=== PATIENT | female | born 1965 | race Caucasian/White ===

== ENCOUNTER 2016-10-30 16:46 | Emergency (ER) | payer OTHER ==
[2016-10-30 17:15] VITALS: BP 131/89
--- OUTSIDE RECORDS SUMMARY | 2016-10-30 18:08 | XMS REPORT | Continuity of Care Document ---
:1965 Author Organization [email or web address] [place] [address] Care Team Providers Name Role Phone VaishalikylieMiriam Primary Care Provider [phone] Source Comments This disclosure is being made pursuant to the [employer] program and maynot contain all information available regarding this patient.[email or web address] Active Allergies and Adverse Reactions No Known Allergies Current Medications Be aware that medications may not be up to date as of this document. Alwaysverify current medications with the patient. Prescription Sig. Disp. Refills Start Date End Date Status meloxicam (MOBIC) 15 Take 1 tablet 30 tablet 5 10/12/2015 Active MG tablet by mouth daily. gabapentin Take 2 180 capsule 5 10/12/2015 Active (NEURONTIN) 400 MG capsules by capsule mouth 3 (three) times daily. ALPRAZolam (XANAX) Take by mouth 1 tablet 0 09/04/2016 Active 0.5 MG tablet 2 hours before MRI cyclobenzaprine TAKE ONE 30 tablet 0 09/25/2016 Active (FLEXERIL) 10 MG TABLET BY tablet MOUTH THREE TIMES A DAY NEEDED FOR MUSCLE SPASMS acetaminophen Take 500 mg Active (TYLENOL) 500 MG by mouth tablet every 6 (six) hours as needed for Pain. traMADol (ULTRAM) 50 Take 1 tablet 8 tablet 0 10/12/2016 Active MG tablet (50 mg total) by mouth every 8 (eight) hours as needed for Pain. triamterene-hydrochl TAKE ONE 30 tablet 2 10/16/2016 Active orothiazide TABLET BY (MAXZIDE-25) 37.5-25 MOUTH EVERY MG per tablet DAY diclofenac sodium Take 1 tablet 60 tablet 2 10/30/2016 Active (VOLTAREN) 75 MG EC by mouth 2 tablet (two) times daily. triamterene-hydrochl TAKE ONE 30 tablet 2 07/12/2016 Discontinued orothiazide TABLET BY 7 (MAXZIDE-25) 37.5-25 MOUTH EVERY MG per tablet DAY traMADol (ULTRAM) 50 Take 1 tablet 8 tablet 0 09/21/2016 Discontinued MG tablet (50 mg total) 7 by mouth every 8 (eight) hours as needed for Pain. diclofenac sodium Take 1 tablet 60 tablet 0 09/28/2016 Discontinued (VOLTAREN) 75 MG EC by mouth 2 7 tablet (two) times daily. Active Problems Problem Noted Date MRSA (methicillin resistant Staphylococcus aureus) infection 05/20/2016 Bilateral lower extremity edema 10/12/2015 Left foot pain 06/16/2015 Fibromyalgia 01/19/2015 Knee pain 05/21/2014 Low back pain radiating to right lower extremity 11/21/2013 Ganglion of joint 09/26/2013 Overview: Overview: MIRIAM KUMAR MD Edema 04/10/2013 Overview: Overview: MIRIAM KUMAR MD Osteoarthrosis, hand 04/10/2013 Overview: Overview: MIRIAM KUMAR MD Uncomplicated varicose veins 04/10/2013 Overview: Overview: MIRIAM KUMAR MD Tear of lateral cartilage or meniscus of knee, current 01/15/2013 Overview: Overview: left knee confirmed by MRI of 01/03/13. Chronicity:Acute ALLI BRIZUELA MD Tear of medial cartilage or meniscus of knee, current 01/15/2013 Overview: Overview: left knee confirmed by MRI of 01/03/13. Chronicity:Acute ALLI BRIZUELA MD Chondromalacia of patella 01/15/2013 Overview: Overview: left knee seen on MRI of 01/03/13 as well. Chronicity:Chronic ALLI BRIZUELA MD Osteoarthritis of knee 01/15/2013 Overview: Overview: LC and PFJ left side with valgus (15 degrees). Chronicity:Chronic ALLI BRIZUELA MD Pain in joint, pelvic region and thigh 12/23/2012 Overview: Overview: left for last 4-5 months. Chronicity:Chronic MIRIAM KUMAR MD Enthesopathy of hip region 12/23/2012 Overview: Overview: Left hip. Chronicity:Chronic ALLI BRIZUELA MD Obesity 12/23/2012 Overview: Overview: Chronicity:Chronic ALLI BRIZUELA MD Resolved Problems Problem Noted Date Resolved Date s/p left knee arthroscopy DOS: 06/02/14 06/17/2014 03/05/2015 Iron deficiency anemia 06/10/2008 06/16/2014 Overview: Overview: MIRIAM KUMAR MD Most Recent Encounters Date Type Specialty Providers Description 10/30/2016 Refill Pain Management Leah Guerrero, RN 10/15/2016 Refill Family Miriam Chapin, Bilateral lower MD extremity edema 10/12/2016 Telephone Family Medicine Jayne Herbert, Medication Management PUBLIC EVENTS FACILITIES RENTAL MANAGER 10/03/2016 Telephone Pain Management Cami Montes, Other RN 09/28/2016 Hospital Encounter Pain Management 1, [facility] Pain Prov Hip bursitis , right (Primary Dx) 09/27/2016 Anesthesia Event Pain Management Celine Buckley, PATHOLOGICAL TECHNICIAN 09/25/2016 Refill Family Miriam Chapin MD 09/21/2016 Refill Family Miriam Chapin MD 09/21/2016 Refill Family Jayne Wright, PUBLIC EVENTS FACILITIES RENTAL MANAGER 09/12/2016 Telephone Family Medicine Araceli Andres Referral PUBLIC EVENTS FACILITIES RENTAL MANAGER 09/11/2016 Hospital Encounter Radiology Miriam Kumar, Low back pain MD radiating to right lower extremity 09/11/2016 Telephone Family Jayne Wright, Medication Refill PUBLIC EVENTS FACILITIES RENTAL MANAGER 09/09/2016 Refill Family Miriam Chapin MD 09/07/2016 Scanned Document Miriam Nava MD 09/04/2016 Office Visit Family Miriam Chapin, Low back pain MD radiating to right lower extremity (Primary Dx); Claustrophobia 08/30/2016 Telephone Family Jayne Wright, Medication Management PUBLIC EVENTS FACILITIES RENTAL MANAGER 08/22/2016 Telephone Pain Management Leah Guerrero, Appointment RN 08/10/2016 Refill Family Jayne Wright, Chronic back pain, PUBLIC EVENTS FACILITIES RENTAL MANAGER unspecified back location, unspecified back pain laterality (Primary Dx) 08/08/2016 Refill Family Miriam Chapin MD Immunizations Name Dates Previously Given Next Due INFLUENZA, INACTIVATED, QUADRIVALENT, 3 05/19/2016,05/24/2015,07/21/2014 YEARS AND older, single dose syringe/vial Tdap 02/05/2014 Social History Tobacco Use Types Packs/Day Years Used Date Never Smoker Smokeless Tobacco: Never Used Tobacco Cessation:Counseling Given: Yes Comments: Alcohol Use Drinks/Week oz/Week Comments Yes Alcoholic Drinks/day: Yes very seldom: Noted on [id number]:24:00 Last Filed Vital Signs Vital Sign Reading Time Taken Blood Pressure 148/85 09/28/2016 2:50 PM TRAVEL ASSISTANT Pulse 86 09/28/2016 2:50 PM TRAVEL ASSISTANT Temperature 37.2 C (99 F) 09/28/2016 2:50 PM TRAVEL ASSISTANT Respiratory Rate 20 09/28/2016 2:50 PM TRAVEL ASSISTANT Height 1.67 m (5' 5.75") 09/04/2016 9:50 AM TRAVEL ASSISTANT Weight 87.998 kg (194 lb) 09/04/2016 9:50 AM TRAVEL ASSISTANT Body Mass Index 31.55 09/04/2016 9:50 AM TRAVEL ASSISTANT Oxygen Saturation 96% 09/28/2016 2:50 PM TRAVEL ASSISTANT Plan of Care Health Maintenance Due Date Last Done Comments Hepatitis C Screening 1982 Colonoscopy 2014 Well Adult Visit 06/16/2015 06/16/2014 Mammogram 03/08/2017 03/08/2015, 03/25/2012, 03/25/2012 Pap Smear 06/16/2017 06/16/2014, 01/28/2013 Tetanus/Pertussis (2 - Td) 02/06/2024 02/05/2014 Influenza Immunization Completed 05/19/2016, 05/24/2015, 07/21/2014 Procedures from Last 3 Months Procedure Name Priority Date/Time Associated Diagnosis Comments HC MAJOR Routine 10/04/2016 8:49 AM Hip bursitis, right Results for this JOINT/BURSA TRAVEL ASSISTANT procedure are in INJECTION the results section. Results from Last 3 Months Major Joint/Bursa Injection (10/04/2016 8:49 AM) Narrative Celine Buckley, PATHOLOGICAL TECHNICIAN 10/04/20168:49 AM Nova Can is a 51 y.o. female patient. Patient Active Problem List Diagnosis Tear of lateral cartilage or meniscus of knee, current Tear of medial cartilage or meniscus of knee, current Edema Pain in joint, pelvic region and thigh Chondromalacia of patella Enthesopathy of hip region Ganglion of joint Osteoarthrosis, hand Obesity Osteoarthritis of knee Uncomplicated varicose veins Low back pain radiating to right lower extremity Knee pain Fibromyalgia Left foot pain Bilateral lower extremity edema MRSA (methicillin resistant Staphylococcus aureus) infection Past Medical History Diagnosis Date Personal history of other musculoskeletal disorders(V13.59) Other musculoskeletal hx: Noted 20124:24PM; Fibromyalgia Personal history of other musculoskeletal disorders(V13.59) Other musculoskeletal hx: Noted :24PM; Fibromyalgia Fibromyalgia Arthritis Hypertension There were no vitals taken for this visit. Major Joint/Bursa Injection Date/Time: 09/28/2016 2:38 PM Performed by: CELINE BUCKLEY Authorized by: CELINE BUCKLEY Greater Trochanteric Bursa Injection Pre-procedure Pain Level:10/10 Post-procedure Pain Level:5/10 Procedure performed: Right trochanteric bursa injection The patient was positively identified in the exam room.The medical record was reviewed, and a full discussion of the risks, benefits, complications, alternatives, and anticipated outcome from this procedure was discussed with the patient.Any questions that the patient had regarding this discussion were answered, the patient stated that they understood the risk and that there were no further questions, and written consent was obtained. The patient was assisted to the Left lateral position on the procedure table.Following a time out, the trochanteric trigger points were elicited with palpation and patient report and marked for identification. Skin was then sprayed with [employer] & Stretch using the spray and stretch technique. Next, the skin was prepped with a chloroprep solution for 60 seconds and allowed to dry. A 25 gauge sacha spinal needle was inserted into the trigger point identified by the paitent.The greater trochanter was contacted and the needle was subsequently withdrawn 1 mm.A 5 ml solution containing 40 mg triamcinolone and 4 ml 0.25% marcaine was injected without difficulty.From the same insertion site, the spinal needle was then walked off the trochanter at a similar depth in a fan-like array anterior, posterior and inferior to the initial needle trajectory and the remaining volume of the 4 ml solution was injected in 1 ml increments.The needle was removed.Any sign of superficial bleeding was tamponaded.The soft tissue over the ipsilateral hip was gently massaged with moisturizing lotion and wiped clean. Bandaids were applied to the puncture sites.The patient tolerated the procedure well.Vital signs remained stable in recovery and through discharge. Total number of puncture sites: 1 Total volume of injectate administered: 5 ml Post Procedure Note: The vital signs were stable, patient was awake and responding appropriately to commands, and conversing with staff.The patient denies any new weakness or paresthesias to all four extremities. Following the procedure, all of the patient's questions were answered to their satisfaction.Both written and verbal discharge instructions were given, and a signed copy was given to the patient.The patient is to be discharged home in the care of their compressed air pile driver operator.We will follow up with this patient in 1 or 2 weeks to reassess their progress, and evaluate the need for further or alternative interventions. Thank you again for allowing us to participate in the care of your patient.Please feel free to contact me at any time should any questions arise regarding this procedure. Celine Buckley CRNA SALES REPRESENTATIVE FACILITY SERVICES 09/28/2016 2:38 PM Celine Buckley CRNA 09/28/2016 Urine Drug Screen (09/28/2016 2:55 PM) Component Value Range Cannabinoids,UR NEG NEG Phencyclidine,UR NEG NEG Cocaine,UR NEG NEG Opiates,UR NEG NEG Amphetamines,UR NEG NEG Benzodiazepines,UR NEG NEG Methadone Screen, UR NEG NEG Barbiturates,UR NEG NEG UR Drug Screen Comment ----Comment: CUT-OFF CONCENTRATION FOR EACH DRUG CLASS [id number] ng/ml Zwjfkod661 ng/ml Vhcadekmbobu73 ng/ml Amphetamines 500 ng/ml Phencyclidine 25 ng/ml [id number] ng/ml Barbiturates 200 ng/ml Cnmyoxcnj733 ng/ml NOTE: These screening results should be used for medical purposes only. If confirmation/quantitation is required, notify laboratory within 7 days. Specimen Urine IMAGE SCANNED RESULT (09/12/2016 10:50 AM)MRI LUMBAR SPINE WO CONTRAST (2016 10:36 AM) Narrative EXAM:MRI LUMBAR SPINE WO CONTRAST ORDER:[id number]/ A A EXAMINATION:MRI of the lumbar spine without contrast REASON FOR EXAM:Low back pain with radiation to right lower extremity FINDINGS:A multiplanar multi sequence MRI of the lumbar spine was obtained.The lumbar region demonstrates normal alignment without gross subluxation.No acute fracture.Conus appears normal.Mild degenerate change.Increased signal in the posterior annulus at L5-S1 suggesting a small annular tear.No laterally herniated disk identified.No perivertebral abnormality.Benign cyst medial aspect left kidney.No central spinal or the neural foraminal stenosis. IMPRESSION:Mild degenerative change with the subtle posterior annular tear at L5-S1.No herniated disk, central spinal stenosis, or neural foraminal stenosis. Kwaku Wilks M.D. THIS IS AN ELECTRONICALLY VERIFIED REPORT FINAL 09/11/2016 10:40 AM:Kwaku Wilks M.D. DS: [id number] Procedure Note Anupam, [facility] - Mon Sep 11, 2016 10:43 AM TRAVEL ASSISTANT EXAM: MRI LUMBAR SPINE WO CONTRAST ORDER: [id number] hjt/ A A EXAMINATION: MRI of the lumbar spine without contrast REASON FOR EXAM: Low back pain with radiation to right lower extremity FINDINGS: A multiplanar multi sequence MRI of the lumbar spine was obtained. The lumbar region demonstrates normal alignment without gross subluxation. No acute fracture. Conus appears normal. Mild degenerate change. Increased signal in the posterior annulus at L5-S1 suggesting a small annular tear. No laterally herniated disk identified. No perivertebral abnormality. Benign cyst medial aspect left kidney. No central spinal or the neural foraminal stenosis. IMPRESSION: Mild degenerative change with the subtle posterior annular tear at L5-S1. No herniated disk, central spinal stenosis, or neural foraminal stenosis. Kwaku Wilks M.D. THIS IS AN ELECTRONICALLY VERIFIED REPORT FINAL 09/11/2016 10:40 AM: Kwaku Wilks M.D. DS: [id number] Referral to PT Eval and Treat (08/24/2016)
[2016-10-30] MEDS ORDERED: KETOROLAC TROMETHAMINE 60 MG/2 ML VIAL IM ONE ×2 (18:28→18:29)
--- NOTE | 2016-10-30 18:36 | ERNOTE ---
Medical Problem HPI - Narrative Date of Service: 10/30/16 - General Chief Complaint: General Assessment Time Seen by Provider: 10/30/16 17:59 Source: patient, RN notes reviewed Exam Limitations: no limitations - Immun/Allergies/Home Medications Immunizations: IMMUNIZATION HX Immunizations Up to Date Yes History of Influenza Vaccine Yes Hx Pneumococcal Vaccination No Allergies/Adverse Reactions: Allergies No Known Allergies Allergy (Unverified 10/30/16 17:08) Home Medications: HOME MEDICATIONS Amitriptyline HCl 100 mg PO DAILY 10/30/16 [Last Taken Unknown] Cyclobenzaprine HCl [Flexeril] 10 mg PO TID PRN 10/30/16 [Last Taken Unknown] Diclofenac Sodium [Voltaren] 75 mg PO BID 10/30/16 [Last Taken Unknown] Gabapentin 400 mg PO TID 10/30/16 [Last Taken Unknown] Triamterene/Hydrochlorothiazid [Maxzide 37.5MG/25 MG] 1 tab PO DAILY 10/30/16 [ Last Taken Unknown] - History of Present History Narrative: 51 y/o female ambulatory to the ED for right hip pain. She is new in [facility]. She was being seen in a pain clinic. She had a steroid injection last month, and reports this has worn off. She was being prescribed Tramadol, but states it is "junk" and does not work. She denies any acute injury. She reports that her pain is due to severe arthritis. Review of Systems - Review of Systems Constitutional: Absent: recent illness, fever, chills EYE: Present: no symptoms reported ENT: Present: no symptoms reported Respiratory: Absent: shortness of breath, cough Cardiology: Absent: chest pain, edema Gastrointestinal/Abdominal: Present: no symptoms reported Genitourinary: Present: no symptoms reported Musculoskeletal: Present: muscle pain, joint pain. Absent: back pain Skin: Absent: lesions, lumps Neurological: Absent: weakness, numbness, tingling Endocrine: Present: no symptoms reported Hematologic/Lymphatic: Present: no symptoms reported Psych: Present: no symptoms reported - Patient's Past Medical History Patient History - Medical: Arthritis, Fibromyalgia Patient History - Cardiac/Respiratory: Hypertension Patient History - Cancer: No Hx of Cancer Patient History - Surgical Procedures: Cholecystectomy, D & C Patient History - Other: None - Social History Living Situations: home Abuse History: No History of abuse Psych History: No pertinent hx Smoking Status: Never smoker Have you smoked in the past 12 months: No Do you dip or chew tobacco: No Patient requests Smoking Cessation Consult: No Initiate information on Smoking Cessation: No Alcohol Use: none Drug Use: none - Immunizations Immunizations Up to Date: Yes Hx Pneumococcal Vaccination: No History of Influenza Vaccine: Yes Physical Exam - Physical Exam General Appearance: Present: wd/wn, alert, no apparent distress Respiratory: Present: no respiratory distress, normal breath sounds, no accessory muscle use, lungs clear Cardiovascular/Chest: Present: regular rate, rhythm, no murmur Neurological Exam: Present: alert, oriented, normal mood/affect Skin Exam: Present: normal color, warm/dry ED Progress - Vital Signs Patient's Vital Signs:: I have reviewed the patient's vital signs. Vital Signs: Vital Signs 10/30/16 17:07 Temperature 36.7 C Pulse Rate 85 Respiratory 16 Rate Blood Pressure 131/89 O2 Sat by Pulse 100 Oximetry - Progress/Reassessment Chief Complaint: General Assessment Progress:: Unchanged Plan - Plan Plan: Discussed with patient that chronic pain is not managed in the ED. She needs information about who to see for further treatment of the arthritis - contact info for ortho given. Toradol IM given prior to D/C. Departure - Departure Clinical Impression: Hip pain, chronic Qualifiers: Laterality: right Qualified Code(s): M25.551 - Pain in right hip; G89.29 - Other chronic pain Disposition: Home Follow Up Needed Condition: Stable Instructions: Hip Pain Additional Instructions: Contact orthopedics for a new patient appointment Referrals: Kraig Ybarra, PAC [[facility]] -
== END 2016-10-30 18:30 | disposition home or self-care (01) ==
LOC: ER 16:46
DX: M25.551 Pain in right hip (principal); G89.29 Other chronic pain; I10 Essential (primary) hypertension

== ENCOUNTER 2017-01-16 08:00 | Inpatient (IN) | payer OTHER ==
[2017-01-23] MEDS ORDERED: MORPHINE SULFATE 15 MG TABLET.SA PO PRN (06:00)
[2017-01-23] MEDS ORDERED: TRANEXAMIC ACID 1,000 MG in NORMAL SALINE 100 ML IV PRN (06:00)
[2017-01-23] MEDS ORDERED: VANCOMYCIN HCL 1 GM in DEXTROSE 5 % IN WATER 250 ML IV PRN ×2 (06:00)
[2017-01-23] MEDS ORDERED: ceFAZolin SODIUM 1 GM VIAL IV PRN (06:00)
--- OUTSIDE RECORDS SUMMARY | 2017-01-23 06:57 | XMS REPORT | Continuity of Care Document ---
:1965 Author Organization [employer] [place] [address] Care Team Providers Name Role Phone Unavailable Primary Care Provider Unavailable Source Comments This disclosure is being made pursuant to the [employer] program and maynot contain all information available regarding this patient.[employer] Active Allergies and Adverse Reactions No Known Allergies Current Medications Be aware that medications may not be up to date as of this document. Alwaysverify current medications with the patient. Prescription Sig. Disp. Refills Start Date End Date Status meloxicam (MOBIC) 15 MG Take 1 tablet 30 tablet 5 10/12/2015 Active tablet by mouth daily. gabapentin (NEURONTIN) Take 2 capsules 180 capsule 5 10/12/2015 Active 400 MG capsule by mouth 3 (three) times daily. ALPRAZolam (XANAX) 0.5 Take by mouth 2 1 tablet 0 09/04/2016 Active MG tablet hours before MRI acetaminophen (TYLENOL) Take 500 mg by Active 500 MG tablet mouth every 6 (six) hours as needed for Pain. triamterene-hydrochloro TAKE ONE TABLET 30 tablet 2 10/16/2016 Active thiazide (MAXZIDE-25) BY MOUTH EVERY 37.5-25 MG per tablet DAY diclofenac sodium Take 1 tablet 60 tablet 2 10/30/2016 Active (VOLTAREN) 75 MG EC by mouth 2 tablet (two) times daily. traMADol (ULTRAM) 50 MG Take 1 tablet 6 tablet 0 11/27/2016 Active tablet (50 mg total) by mouth every 8 (eight) hours as needed for Pain. cyclobenzaprine Take 1 tablet 30 tablet 0 11/27/2016 Active (FLEXERIL) 10 MG tablet by mouth 3 (three) times daily as needed. for muscle spasms Active Problems Problem Noted Date MRSA (methicillin [...] Recent Encounters Date Type Specialty Providers Description 11/27/2016 Refill Family Medicine Phill Donovan RN 11/14/2016 Telephone Family Medicine Jayne Herbert LPN Medication Refill 11/02/2016 Telephone Family Medicine Jayne Herbert LPN Medication Refill 10/30/2016 Refill Pain Management Leah Guerrero RN Immunizations Name Dates Previously Given Next Due INFLUENZA, INACTIVATED, QUADRIVALENT, 3 05/19/2016,05/24/2015,07/21/2014 YEARS AND older, single dose syringe/vial Tdap 02/05/2014 Social History Tobacco Use Types Packs/Day Years Used Date Never Smoker Smokeless Tobacco: Never Used Tobacco Cessation:Counseling Given: Yes Comments: Alcohol Use Drinks/Week oz/Week Comments Yes Alcoholic Drinks/day: Yes very seldom: Noted on [id number]:24:00 Last Filed Vital Signs Vital Sign Reading Time Taken Blood Pressure 148/85 09/28/2016 2:50 PM TELECOM SALES CONSULTANT Pulse 86 09/28/2016 2:50 PM TELECOM SALES CONSULTANT Temperature 37.2 C (99 F) 09/28/2016 2:50 PM TELECOM SALES CONSULTANT Respiratory Rate 20 09/28/2016 2:50 PM TELECOM SALES CONSULTANT Height 1.67 m (5' 5.75") 09/04/2016 9:50 AM TELECOM SALES CONSULTANT Weight 87.998 kg (194 lb) 09/04/2016 9:50 AM TELECOM SALES CONSULTANT Body Mass Index 31.55 09/04/2016 9:50 AM TELECOM SALES CONSULTANT Oxygen Saturation 96% 09/28/2016 2:50 PM TELECOM SALES CONSULTANT Plan of Care Health Maintenance Due Date Last Done Comments Hepatitis C Screening 1982 Colonoscopy 2014 Well Adult Visit 06/16/2015 06/16/2014 Mammogram 03/08/2017 03/08/2015, 03/25/2012, 03/25/2012 Pap Smear 06/16/2017 06/16/2014, 01/28/2013 Tetanus/Pertussis (2 - Td) 02/06/2024 02/05/2014 Influenza Immunization Completed 05/19/2016, 05/24/2015, 07/21/2014 Results from Last 3 Months Not on file
[2017-01-23] MEDS: RINGERS SOLUTION,LACTATED 1,000 ML IV PRN (08:29)
[2017-01-23] MEDS ORDERED: RINGERS SOLUTION,LACTATED 1,000 ML IV ONE ×3 (08:30→11:00)
[2017-01-23] MEDS: ROPIVACAINE HCL/PF 100 MG, EPINEPHrine 0.2 MG, KETOROLAC TROMETHAMINE 30 MG in NORMAL S... IJ PRN ×2 (09:42→10:15)
[2017-01-23] MEDS ORDERED: ONDANSETRON HCL/PF 2 MG/ML VIAL IV PRN (11:29)
[2017-01-23] MEDS ORDERED: PROMETHAZINE HCL 5 MG in DEXTROSE 5 % IN WATER 50 ML IV PRN ×2 (11:29)
[2017-01-23] MEDS ORDERED: diphenhydrAMINE HCL 50 MG/ML VIAL IV PRN (11:29)
[2017-01-23] MEDS ORDERED: ACETAMINOPHEN 500 MG TABLET PO PRN (11:29)
[2017-01-23] MEDS ORDERED: oxyCODONE HCL/ACETAMINOPHEN 1 TAB TABLET PO PRN (11:29)
[2017-01-23] MEDS ORDERED: MAGNESIUM HYDROXIDE 30 ML UDC PO PRN (11:29)
[2017-01-23] MEDS ORDERED: MAG HYDROX/ALUMINUM HYD/SIMETH 30 ML UDC PO PRN (11:29)
--- NOTE | 2017-01-23 11:42 | OR ---
Operative Report - Dictated Report Narrative: Date: 01/23/2017 Preoperative diagnosis: Right hip degenerative joint disease. Postoperative diagnosis: Right hip degenerative joint disease. Procedure: Right Total hip arthroplasty. Surgeon: Julius Mathis M.D. Home Coordinator: Urvashi Ybarra PA-C Anesthesia: Spinal and local periarticular joint injection. Complications: None Specimens: Bone for disposal, synovial tissue for permanent specimen Estimated blood loss: 250 milliliters. Retained implants: Depuy Dillingham size 5 femoral stem standard offset. Size 52 millimeter ouside diameter 3-hole Wilmer Gription acetabular cup. 52 millimeter outside by 36 millimeter inside diameter highly cross-linked acetabular liner. 36 millimeter diameter + 8.5 millimeter ceramic femoral head. Cancellous 6.5mm screw 25 millimeter length Indications: Nova Is a 51-year-old female with severe right hip osteoarthritis. This patient was followed in my clinic for period of time with significant complaints of right hip pain consistent with arthritic changes. She has failed conservative measures including but not limited to activity modification, passage of time, medications, and other conservative measures. Patient wished to proceed with surgical treatment. The risks, benefits, and alternatives were discussed in clinic. The risks of , blood clots, bleeding, infection, nerve/tendon blood vessel/ injury, malposition of components, dislocation and/or instability of joint, intraoperative fracture, postoperative limited range of motion, persistent pain, failure of components, and need for additional procedures. Patient wished to proceed. Consent was obtained after answering all questions. Procedure: After marking the correct extremity on the floor, the patient was taken to the operating room. A timeout was performed. IV antibiotics consisting of 2 g of Ancef were administered prior to the procedure. A spinal anesthetic was induced by anesthesia. A Merchant catheter was inserted. The patient was then transitioned to a lateral position on a well-padded pegboard. And an axillary roll was placed. The head was in neutral position. The non- operative down leg was well-padded with SCD and URVASHI hose in place. The arms were supported and padded to protect from any undue pressure on the bony prominences and nerves. Well-padded anterior and posterior pelvic and chest posts were secured in order to maintain a stable position of the pelvis. This was placed so that the pelvis was perpendicular to the floor. The body was in line with the pelvis. Once it was felt that we had protected all the bony prominences and the patient was well secured with a safety belt as well, the leg was pre-scrubbed with alcohol, prepped and draped in a standard sterile fashion. A standard anterior lateral hip incision was marked out over the greater trochanter. Ioban drapes were then placed. The skin incision was then made. Sharp dissection with a scalpel utilizing cautery for hemostasis was carried out down to the gluteus and iliotibial band fascia. This was split in line with the skin incision. The greater trochanter bursa was excised. The anterior and posterior margins of the abductor tendon were identified. The anterior 1/3 of the tendon was tagged and reflected off the greater trochanter leaving a sleeve of tendon for repair at the completion of the case. This exposed the underlying hip joint capsule. A limb length stitch was placed in the skin and referenced off a rosaura on the greater trochanter for evaluation of intraoperative limb lengths. An inverted T-type capsulotomy was made extending this up to the brim of the acetabulum. Using Homans to assist with elevation of the soft tissues off the anterior, superior, and inferior aspects of the femoral neck, the hip was then placed in a figure 4 position and the femoral head was dislocated. With the leg in an externally rotated and adducted position, the cutting flag was utilized in order to rosaura for a standard femoral neck cut approximately a fingerbreadth above the level of the lesser trochanter. This was done while protecting the surrounding soft tissues with Homans. The femoral head was then removed and sized for guidance on preparation of the acetabulum. It was noted that there was loss of articular cartilage on both the femoral head and weightbearing portions of the acetabulum. We then returned the leg to the table and turned our attention to the acetabulum. While protecting the surrounding soft tissues, the labrum and remaining tissue in the fovea were excised using a scalpel and cautery. She was noted to have a significant amount of inflamed synovium which was debrided and sent for permanent specimen. There was no concern for any infectious process. A series of reamers up to size 51 millimeter were utilized to prepare the acetabulum. The final reamer had good purchase and exposed the bleeding subchondral bone. The acetabulum was then thoroughly irrigated ensuring that all bony and cartilaginous materials were removed and the final acetabular shell was impacted into place. This was placed in approximately 45 degrees of abduction and 20 degrees of anteversion utilizing the outrigger and body axis for alignment. This had a good press fit. One 6.5mm x 25mm cancellous screw was placed in the posterior superior quadrant of the acetabulum. The shell was then thoroughly irrigated and the final polyethylene was impacted into place ensuring that it seated completely. This was then protected with a sponge while we returned our attention to the femur. With the leg in a figure 4 position utilizing Homans for soft tissue protection , a box cutting osteotome, followed by Rajeev awl, followed by serial reamers and broaches were utilized in order to prepare the femur. It was found that a size 5 broach gave good axial and rotational stability. The proximal femur was visualized to ensure that there were no signs of fracture. A series of heads and necks were trialed. It was found that a standard offset neck and a + 8.5 mm femoral head gave good overall stability. There is minimal longitudinal instability. With the leg in the position of sleep the femoral head was well covered. Hip range of motion was able to reach full extension and external rotation to greater than 75 degrees prior to impingement along the posterior acetabulum. The hip was able to be flexed to greater than 90 degrees with internal rotation greater than 60 degrees prior to anterior impingement. The limb lengths were near equal based on comparison to the contralateral side in the prior placed limb length stitch. At this point was felt this was the appropriately sized femoral components as well as neck and femoral head. The trial implants were removed. The femur was thoroughly irrigated. The final implants were impacted in the place and the hip was reduced. After ensuring that there was no damage to the proximal femur , the standard periarticular joint injection of ropivacaine, Toradol, and epinephrine were injected into the joint capsule and surrounding soft tissues. The capsule was repaired with interrupted #1 Vicryl. The abductor tendon was repaired utilizing #5 Ethibond. This was oversewn with #1 Vicryl. The fascia was closed with interrupted #1 Vicryl. The wounds were thoroughly irrigated as we closed in layers. The deep fat layers were closed with 0 Vicryl. The subcutaneous tissue was closed with interrupted 3-0 Vicryl and the skin with a running subcuticular 3-0 monocryl and travon. All sponge, needle, blade, and instrument counts were correct prior to closing the wounds. Sterile dressings consisting of a Prineo dressing, 4 x 4's, ABD, and tape were applied. The patient was awoken and transferred to her hospital bed and then to the postanesthesia care unit in stable condition. Postoperative condition: The plan is to admit to the medical/surgical inpatient floor postoperatively. There will be a projected 2 to 4 day hospital stay. Postoperatively 24 hours of IV antibiotics, pain control, physical therapy, occupational therapy, and medical comanagement will be utilized. Patient will be weightbearing as tolerated with anterior hip precautions. Postoperative films will be obtained in the recovery room.
[2017-01-23] MEDS: NORMAL SALINE 1,000 ML IV PRN ×2 (13:51→22:43)
[2017-01-23] MEDS: ceFAZolin SODIUM 2 GM in DEXTROSE 5 % IN WATER 50 ML IV SCH ×4 (13:51→20:05)
[2017-01-23] MEDS ORDERED: ceFAZolin SODIUM 2 GM in DEXTROSE 5 % IN WATER 100 ML IV SCH ×2 (14:00)
[2017-01-23] MEDS: SENNOSIDES/DOCUSATE SODIUM 1 TAB TABLET PO SCH (20:04)
[2017-01-23] MEDS: oxyCODONE HCL/ACETAMINOPHEN 1 TAB TABLET PO PRN (20:05)
[2017-01-23] MEDS: MORPHINE SULFATE 2 MG/ML DISP.SYRIN IV PRN (21:59)
[2017-01-24] MEDS: oxyCODONE HCL/ACETAMINOPHEN 1 TAB TABLET PO PRN ×6 (00:20→22:37)
[2017-01-24] MEDS: ceFAZolin SODIUM 2 GM in DEXTROSE 5 % IN WATER 50 ML IV SCH ×2 (02:15)
[2017-01-24] MEDS: RINGERS SOLUTION,LACTATED 1,000 ML IV PRN (04:37)
[2017-01-24 05:24] LABS: Hematocrit 33.4 % (37.0-47.0); Hemoglobin 11.4 gm/dL (12.5-16.0); Mean Cell Volume 85.2 fl (78-100); Mean Corpuscular Hemoglobin 29.1 pg (27-31); Mean Corpuscular Hgb Conc 34.1 g/dl (32-36); Platelet Count 266 K/mm3 (150-450); Red Blood Count 3.92 M/mm3 (4.2-5.4); White Blood Count 10.8 K/mm3 (4.0-10.5)
[2017-01-24 05:33] LABS: Anion Gap 7.7 mmol/L (6.8-13.8); Calcium * 8.6 mg/dL (7.9-10.9); Potassium 2.7 mmol/L (3.4-4.6)
[2017-01-24] MEDS ORDERED: POTASSIUM CHLORIDE 20 MEQ TABLET.SA PO ONE ×2 (08:33→10:15)
--- NOTE | 2017-01-24 08:45 | PN ---
Subjective - Date and Time Seen Date: 01/24/17 Subjective Narrative: Difficulty with pain control overnight, much improved this am. Has been up and walked to door and back with PT. Objective - Vitals Vitals: Last Vital Signs Temp 36.7 C 01/24/17 06:43 Pulse 89 01/24/17 06:43 Resp 17 01/24/17 06:43 BP 107/56 01/24/17 06:43 Pulse Ox 93 01/24/17 06:43 - Abnormal Lab Findings Abnormal Lab Findings: Abnormal Lab Results 01/24/17 01/24/17 Range/Units 05:16 05:16 WBC 10.8 H (4.0-10.5) K/mm3 RBC 3.92 L (4.2-5.4) M/mm3 Hgb 11.4 L (12.5-16.0) gm/dL Hct 33.4 L (37.0-47.0) % MPV 10.0 H (6.0-9.5) fl Potassium 2.7 L D (3.4-4.6) mmol/L Carbon Dioxide 34.0 H (24-32.6) mmol/L Random Glucose 115 H (70-110) mg/dL - Exam Exam Narrative: Gen: A&Ox3, NAD Resp: breathing non-labored MSK: RLE--> dressing c/d/i, minimal pain with gentle ROM, SILT, 5/5 EHL/FHL/DF/ PF, cap refill brisk Cauti Physician Documentation - Urinary Catheter Management Urethral (Graham) Date of Insertion: 01/23/17 Time of Insertion: 08:45 Date of Removal: 01/24/17 Time of Removal: 07:25 Assessment/Plan Plan Narrative: 51 yo F s/p R CHAVA, POD #1. - WBAT, anterior precautions - regular diet - oral pain meds - graham out today - K+ 2.7 this am - 40 mEq KCl ordered - DVT ppx: lovenox, SCDs, sanjay gao - PT/OT - dispo: continue inpatient care
[2017-01-24] MEDS: ENOXAPARIN SODIUM 40 MG/0.4 ML SYRG SC SCH (10:14)
[2017-01-24] MEDS: MORPHINE SULFATE 2 MG/ML DISP.SYRIN IV PRN (19:04)
[2017-01-24] MEDS: SENNOSIDES/DOCUSATE SODIUM 1 TAB TABLET PO SCH (20:45)
[2017-01-24] MEDS ORDERED: AMITRIPTYLINE HCL 50 MG TABLET PO SCH (21:00)
[2017-01-25 05:05] LABS: Hematocrit 33.2 % (37.0-47.0); Hemoglobin 11.2 gm/dL (12.5-16.0); Mean Cell Volume 85.1 fl (78-100); Mean Corpuscular Hemoglobin 28.7 pg (27-31); Mean Corpuscular Hgb Conc 33.7 g/dl (32-36); Mean Platelet Volume 9.3 fl (6.0-9.5); Platelet Count 239 K/mm3 (150-450); Red Cell Distribution Width 13.1 % (11.5-14.0); White Blood Count 10.6 K/mm3 (4.0-10.5)
[2017-01-25] MEDS: oxyCODONE HCL/ACETAMINOPHEN 1 TAB TABLET PO PRN ×2 (05:13→11:21)
[2017-01-25 05:39] LABS: BUN/Creatinine Ratio 11.3 (9.0-21.6); Calcium * 9.2 mg/dL (7.9-10.9); Carbon Dioxide 35.1 mmol/L (24-32.6); Potassium 3.1 mmol/L (3.4-4.6)
[2017-01-25 07:25] VITALS: BP 120/70
[2017-01-25] MEDS ORDERED: TRIAMTERENE/HYDROCHLOROTHIAZID 1 TAB TABLET PO SCH (09:00)
--- NOTE | 2017-01-25 09:37 | PN ---
Subjective - Date and Time Seen Date: 01/25/17 Subjective Narrative: No events overnight. Pain control improving. Making gains with PT. Objective - Vitals Vitals: Last Vital Signs Temp 36.7 C 01/25/17 06:57 Pulse 82 01/25/17 06:57 Resp 19 01/25/17 06:57 BP 120/70 01/25/17 06:57 Pulse Ox 88 L 01/25/17 06:57 - Abnormal Lab Findings Abnormal Lab Findings: Abnormal Lab Results 01/25/17 01/25/17 Range/Units 05:06 05:06 WBC 10.6 H (4.0-10.5) K/mm3 RBC 3.90 L (4.2-5.4) M/mm3 Hgb 11.2 L (12.5-16.0) gm/dL Hct 33.2 L (37.0-47.0) % Potassium 3.1 L (3.4-4.6) mmol/L Carbon Dioxide 35.1 H (24-32.6) mmol/L Anion Gap 6.0 L (6.8-13.8) mmol/L - Exam Exam Narrative: Gen: A&Ox3, NAD Resp: breathing non-labored MSK: RLE--> dressing c/d/i, minimal pain with gentle ROM, SILT, 5/5 EHL/FHL/DF/ PF, cap refill brisk Cauti Physician Documentation - Urinary Catheter Management Urethral (Graham) Date of Insertion: 01/23/17 Time of Insertion: 08:45 Date of Removal: 01/24/17 Time of Removal: 07:25 Assessment/Plan Plan Narrative: 51 yo F s/p R CHAVA, POD #2. - WBAT, anterior precautions - regular diet - oral pain meds - MS contin added - graham out today - K+ 3.1 this am - additional 40 mEq KCl ordered - DVT ppx: lovenox, SCDs, sanjay gao - PT/OT - dispo: potential d/c today pending progress with PT
[2017-01-25] MEDS ORDERED: MORPHINE SULFATE 15 MG TABLET.SA PO SCH (09:45)
[2017-01-25] MEDS: POTASSIUM CHLORIDE 20 MEQ TABLET.SA PO ONE ×2 (09:52→09:53)
[2017-01-25] MEDS: ENOXAPARIN SODIUM 40 MG/0.4 ML SYRG SC SCH (09:54)
--- NOTE | 2017-01-25 10:03 | DS ---
(1) Hip osteoarthritis Problem: Chronic Description of Stay: The patient was admitted to the hospital and taken to the OR on 01/23/17 for elective R total hip arthroplasty. She tolerated the procedure well and there were no complications. She returned to the inpatient unit postoperatively where vitals and labs were followed and the patient remained stable. She resumed a normal diet and normal bladder and bowel function. Pain was controlled with oral pain meds. PT/OT were consulted and the patient made gains in mobility. Wound was followed and showed no signs of complication. DVT prophylaxis was initiated with lovenox, SCDs, and sanjay hose. She was deemed stable for discharge home on 01/25/17. Procedures Performed: see notes below List Procedures: Right total hip arthroplasty - 01/23/17 Discharge Disposition: Home self care Disposition: Home self-care Condition: Good Discharge Activity: Activity as tolerated Discharge Diet: General/regular food [facility] Therapy: Physicial Therapy Referrals: Janet Sandoval FNP [Primary Care Provider] - Additional Patient Instructions (free text): Orthopedic Discharge Instructions: 1. WBAT, anterior hip precautions. 2. Oral pain meds. 3. May shower with Prineo dressing uncovered. Inspect Prineo dressing daily for any drainage or peeling up of the dressing. If either is noted, notify the Orthopedic clinic, cover with 4x4 gauze and tape, and switch to sponge baths only. 4. DVT prophylaxis: Lovenox for a total of 10 days followed by 325 mg aspirin daily for 6 weeks. Knee high sanjay hose on the operative leg for 6 weeks. 5. Outpatient PT ordered, no abductor strengthening until 6 weeks post op. 6. Notify the Orthopedic clinic for any wound drainage, increasing pain, fever/ chills, inability to void, or any other decline in medical condition. 7. Follow up with Dr. Mathis 01/31 at 9:00 AM. Prescriptions (Any new or edited meds): Enoxaparin Sodium [Lovenox] 40 mg SC Q24H #8 disp.syrin Morphine Sulfate [Adng] 20 mg PO Q12H #20 cap.er.pel Ondansetron HCl [Zofran] 4 mg PO Q6H PRN #30 tablet PRN Reason: Nausea Sennosides/Docusate Sodium [Senokot-S] 2 tab PO HS #40 tablet oxyCODONE HCL/ACETAMINOPHEN [Percocet 5 MG/325 MG] 1 - 2 tab PO Q4H PRN #120 tablet PRN Reason: Severe Pain Complete Home Medications List: Complete Home Medication List: Amitriptyline HCl 100 mg PO HS 10/30/16 Gabapentin 800 mg PO TID 10/30/16 Triamterene/Hydrochlorothiazid [Maxzide 37.5MG/25 MG] 1 tab PO DAILY 10/30/16 Acetaminophen [Tylenol] 500 mg PO Q4H PRN 01/10/17 Enoxaparin Sodium [Lovenox] 40 mg SC Q24H #8 disp.syrin 01/25/17 Morphine Sulfate [Dang] 20 mg PO Q12H #20 cap.er.pel 01/25/17 Ondansetron HCl [Zofran] 4 mg PO Q6H PRN #30 tablet 01/25/17 Sennosides/Docusate Sodium [Senokot-S] 2 tab PO HS #40 tablet 01/25/17 oxyCODONE HCL/ACETAMINOPHEN [Percocet 5 MG/325 MG] 1 - 2 tab PO Q4H PRN #120 tablet 01/25/17 Amb Orders for Discharge: PT Evaluation and Treatment Facility: [facility], Location: Rehabilitation Services
== END 2017-01-25 12:04 | disposition home or self-care (01) | DRG 470 ==
LOC: MS 01-23 06:53
PROVIDERS: ADMIT Orthopaedic Surgery; ATTEND Orthopaedic Surgery
PROC: 0SR90JZ Replacement of Right Hip Joint with Synthetic Substitute, Open Approach (ICD-10-PCS; principal; 2017-01-23 09:30)
DX: M16.11 Unilateral primary osteoarthritis, right hip (principal); I10 Essential (primary) hypertension; M79.7 Fibromyalgia; R94.31 Abnormal electrocardiogram [ECG] [EKG]